=== PATIENT | male | born 1995 | race Caucasian/White ===

== ENCOUNTER 2022-12-17 14:26 | Emergency (ER) | payer MEDICAID, OTHER ==
[~2022-12-17] VITALS: Ht 190.5 cm; Wt 86.2 kg
[2022-12-17] MEDS ORDERED: diphenhydrAMINE 25 MG CAP PO ONE ×2 (14:56→15:00)
[2022-12-17] MEDS ORDERED: predniSONE 20 MG TABLET ONE (14:57)
[2022-12-17] MEDS ORDERED: predniSONE 20 MG TABLET PO ONE (15:00)
[2022-12-17] MEDS ORDERED: PRED20TA PO (15:20)
[2022-12-17] MEDS ORDERED: EPIN0.3P3 IM (15:23)
[2022-12-17 15:30] VITALS: BP 124/81
--- NOTE | 2022-12-17 15:30 | NUR ---
Patient discharged to home in stable condition. Written and verbal after care instructions given. Patient verbalizes understanding of instructions. Stressed follow up or return to ER for worsening s/s.
== END 2022-12-17 15:30 | disposition home or self-care (01) ==
LOC: ER 14:26
DX: R22.0 Localized swelling, mass and lump, head (principal); Z87.442 Personal history of urinary calculi
CPT/HCPCS: 99283; Q0163; J7512; A4663